=== PATIENT | female | born 1955 | race Caucasian/White ===

== ENCOUNTER 2016-10-12 13:33 | Emergency (ER) | payer BC ==
[2016-10-12 13:59] VITALS: BP 103/69; TEMP 96.1; O2SAT 99
--- NOTE | 2016-10-12 14:34 | ED.PDOC ---
History of Present Illness - General Chief Complaint: Upper Extremity Injury Stated Complaint: LEFT THUMB PAIN Time Seen by Provider: 10/12/16 13:57 Source: patient Exam Limitations: no limitations - History of Present Illness Initial Comments: the patient is a 61-year-old female presenting to the emergency room due to left thumb pain at the proximal interphalangeal joint after injuring it 2 weeks ago while snow skiing. Range of motion is slightly decreased at the joint and there is obvious swelling. No bruising at this time. Range of motion otherwise of the thumb and hand is within normal limits. Sensation is within normal limits. Capillary refill is within normal limits. No other injuries. Active range of motion and strength are preserved. She is tender to palpation of the joint. No gross deformity however. Pain - Upper Extremity: mild: Hand, left Method of Injury: fell, sports injury Improving Factors: immobilization Worsening Factors: movement Allergies/Adverse Reactions: Allergies NO KNOWN ALLERGY Allergy (Verified 07/22/15 08:24) Home Medications: Ambulatory Orders Levothyroxine Sodium [Synthroid] 0.025 mg PO 0700 07/22/15 Estradiol 0.5 mg PO DAILY 10/12/16 Trazodone HCl BEDTIME 10/12/16 Review of Systems - Review of Systems Constitutional: States: no symptoms reported EENTM: States: no symptoms reported Respiratory: States: no symptoms reported Cardiology: States: no symptoms reported Gastrointestinal/Abdominal: States: no symptoms reported Genitourinary: States: no symptoms reported Musculoskeletal: States: see HPI Skin: States: no symptoms reported Neurological: States: no symptoms reported All other Systems: No Change from Baseline Past Medical History (General) - Patient Medical History Hx Congestive Heart Failure: No Hx Thyroid Disease: Yes Hx Diabetes: No Surgical History: Hysterectomy - Vaccination History Hx Tetanus, Diphtheria Vaccination: No Hx Influenza Vaccination: No Hx Pneumococcal Vaccination: No - Social History Hx Tobacco Use: No - Female History Patient : No Family Medical History - Family History Mother Family History: Unknown Physical Exam - Physical Exam General Appearance: Alert, Comfortable, No apparent distress Eyes, Ears, Nose, Throat Exam: PERRL/EOMI Cardiovascular/Respiratory: normal peripheral pulses, no respiratory distress Shoulder Exam: non-tender, no evidence of injury, normal ROM Elbow/Forearm Exam: non-tender, no evidence of injury, normal ROM Wrist Exam: normal inspection, non-tender, no evidence of injury, normal ROM Hand Exam: swelling - see history of present illness. Right hand is within normal limits. Neuro/Tendon: normal sensation, normal motor functions, normal tendon functions Mental Status: alert, oriented x 3 Skin Exam: normal color Comments: Vital Signs - 24 hr 10/12/16 13:56 Temperature 96.1 F L Pulse Rate [ 51 L Right Brachial] Respiratory 16 Rate Blood Pressure 103/69 [Right Arm] O2 Sat by Pulse 99 Oximetry Progress - Progress Progress: 10/12/16 14:34 the patient is a 61-year-old female presenting with pain in her proximal left thumb, from an injury 2 weeks ago. X-ray shows no evidence of fracture or sustained dislocation. This is likely simply a thumb sprain. There is little point in immobilizing the thumb at this time. Mqsl-vfq-[id number] anti-inflammatories can be used to help reduce discomfort. She should anticipate another 2-3 weeks of mild discomfort. EOMs are given for any change in condition for the worse. Departure - Departure Clinical Impression: Thumb sprain Qualifiers: Encounter type: initial encounter Laterality: left Qualifier Code: (S63.602A) Unspecified sprain of left thumb, initial encounter Disposition: Discharge to Home or Self Care Condition: Fair Departure Forms: ED Discharge - Pt. Copy, Patient Portal Self Enrollment Instructions: Finger Sprain Diet: regular diet Activity: increase activity as tolerated Referrals: Won Jauregui MD [Primary Care Provider] - 1-2 Weeks Home Medications: Ambulatory Orders Levothyroxine Sodium [Synthroid] 0.025 mg PO 0700 07/22/15 Estradiol 0.5 mg PO DAILY 10/12/16 Trazodone HCl BEDTIME 10/12/16 Additional Instructions: the patient is a 61-year-old female presenting with pain in her proximal left thumb, from an injury 2 weeks ago. X-ray shows no evidence of fracture or sustained dislocation. This is likely simply a thumb sprain. There is little point in immobilizing the thumb at this time. Mloy-psx-vtfzbfy anti-inflammatories can be used to help reduce discomfort. She should anticipate another 2-3 weeks of mild discomfort. EOMs are given for any change in condition for the worse.
--- NOTE | 2016-10-12 14:38 | RAD ---
Three view left thumb. Indication: snow ski injury 2 weeks ago. Comparison: None. Impression: No acute fracture or malalignment. If there is persistent anatomic snuffbox tenderness, repeat wrist imaging to include a scaphoid view is recommended in one week to evaluate for occult scaphoid fracture. Soft tissues are intact without radiopaque foreign body. Electronically signed by: Royce Arguello MD 10/12/2016 2:37 PM CDT
== END 2016-10-12 14:44 | disposition home or self-care (01) ==
LOC: ER 13:33
DX: S63.602A Unspecified sprain of left thumb, initial encounter (principal); Z79.899 Other long term (current) drug therapy; X58.XXXA Exposure to other specified factors, initial encounter; Y93.23 Activity, snow (alpine) (downhill) skiing, snowboarding, sledding, tobogganing and snow tubing; Y92.9 Unspecified place or not applicable

== ENCOUNTER → 2017-05-13 | Outpatient (CLI) | payer BC ==
--- NOTE | 2017-05-16 08:51 | CT ---
EXAM DESCRIPTION: Chest w/o Contrast CLINICAL HISTORY: 62 years,Female,R91.8 COMPARISON: None TECHNIQUE: Multiple axial helical tomographic images were obtained of the chest with out IV contrast, then reconstructed in the sagittal and coronal plane. This exam was performed using radiation doses that are As Low As Reasonably Achievable (ALARA). FINDINGS: Lung sheth are clear. No consolidations or effusions or nodules. No pneumothoraces. Mild nonspecific pleural thickening at the apices Mediastinum demonstrates no adenopathy or masses. Heart size and pulmonary vascularity are unremarkable. Upper abdominal organs included in the exam are unremarkable. Soft tissues and bony elements are unremarkable. Borderline bronchiectasis with the bronchi being slightly larger than the adjacent vessels. But no wall thickening. IMPRESSION: No acute findings. There is some borderline bronchiectasis Electronically signed by: Bob Cooley MD 05/16/2017 8:49 AM CDT
== END | disposition home or self-care (01) ==
LOC: CT 11:01
PROVIDERS: ATTEND Family Medicine
DX: R91.8 Other nonspecific abnormal finding of lung field (principal)

== ENCOUNTER → 2017-09-28 | Outpatient (CLI) | payer BC | LOC: GMAHI 16:49 | PROVIDERS: ATTEND Nurse Practitioner Family | DX: D50.8 Other iron deficiency anemias (principal) ==

== ENCOUNTER → 2017-10-20 | Outpatient (CLI) | payer BC | END | disposition home or self-care (01) | LOC: MAMMO 13:30 | PROVIDERS: ATTEND Nurse Practitioner Family | DX: Z12.31 Encounter for screening mammogram for malignant neoplasm of breast (principal) ==

== ENCOUNTER → 2017-11-08 | Outpatient (CLI) | payer BC ==
--- NOTE | 2017-11-10 10:45 | US ---
EXAM DESCRIPTION: Breast,Left: Ultrasound CLINICAL HISTORY: 62 yearsFemaleABNORMAL MAMMO COMPARISON: Digital diagnostic 3-D tomosynthesis bilateral mammography on this visit. Screening 3-D tomosynthesis bilateral mammography 10/20/2017. TECHNIQUE: Transcutaneous scanning of the left breast utilizing two-dimensional and Doppler modes. Scanning performed by the medical office asst and Dr. Rhoades. FINDINGS: Scanning at the 6:00 sectors of the left breast from 5 cm to the nipple. Well-marginated hypoechoic mass measuring 5.5 x 3.0 mm with parallel orientation and indistinct posterior acoustic features. No central vascularity, but most likely a lymph node. Chest wall is well visualized. No distinct solid mass or cyst in the adjacent soft tissues. No parenchymal edema or large calcifications. No overlying skin changes. No abnormal soft tissue Doppler vascularity. IMPRESSION: 1. Bi-Rads Category 2: Benign. 2. Please refer to bilateral diagnostic 3-D tomosynthesis mammogram examination and report on this visit. The FINDINGS and the FOLLOW-UP plan were reviewed in person with the patient after the examination. Written communication explaining the IMPRESSION and FOLLOW-UP will be mailed to the patient and referring care provider. Electronically signed by: Ritchie Rhoades MD 11/10/2017 10:43 AM CDT
--- NOTE | 2017-11-10 10:46 | MAM ---
EXAM DESCRIPTION: 3D Diagnostic, Bilateral: Digital Mammography CLINICAL HISTORY: 62 yearsFemaleABN SCREEN . Focal asymmetry left breast.. COMPARISON: Screening 3-D tomosynthesis bilateral mammography 10/20/2017. Targeted left breast ultrasound following this examination. Reports from prior examinations also reviewed. TECHNIQUE: Bilateral LM projection full-field images, 3-D tomosynthesis digital mammographic technique. Also bilateral synthesized LM full-field images. CAD not utilized. FINDINGS: The breast parenchymal density pattern is: Heterogeneously dense breast tissue, which may obscure small masses. No skin thickening or nipple retraction focal asymmetry seen on the screening study is not as well demonstrated on the left LM 3-D tomosynthesis full field images. Ultrasound: Scanning at the 6:00 sectors of the left breast from 5 cm to the nipple. Well-marginated hypoechoic mass measuring 5.5 x 3.0 mm with parallel orientation and indistinct posterior acoustic features. No central vascularity, but most likely a lymph node. Chest wall is well visualized. No distinct solid mass or cyst in the adjacent soft tissues. No parenchymal edema or large calcifications. No overlying skin changes. No abnormal soft tissue Doppler vascularity. IMPRESSION: BI-RADS CATEGORY: 2 - BENIGN FINDINGS. FOLLOW UP: Routine digital bilateral screening, one year interval from October 2017. Written communication explaining the IMPRESSION and follow-up, will be mailed to the patient and referring health care provider. According to the [employer], yearly mammograms are recommended starting at age 40 and continuing as long as a woman is in good health. Any breast change noted on a breast self-exam should be reported promptly to the patient's healthcare provider. Breast MRI is recommended for women with an approximately 20-25% or greater lifetime risk of breast cancer, including women with a strong family history of breast or ovarian cancer and women who have been treated for Hodgkin's disease. A negative mammographic report should not delay tissue diagnosis in patients with significant clinical history or physical findings. Extremely dense breast tissue limits the sensitivity of digital mammography. Electronically signed by: Ritchie Rhoades MD 11/10/2017 10:44 AM CDT
== END ==
LOC: MAMMO 13:00
PROVIDERS: ATTEND Family Medicine
DX: R92.8 Other abnormal and inconclusive findings on diagnostic imaging of breast (principal)
CPT/HCPCS: 76641; 77066; G0279

== ENCOUNTER → 2018-10-31 | Outpatient (CLI) | payer BC ==
--- NOTE | 2018-11-01 16:47 | MAM ---
EXAM DESCRIPTION: 3D Screening BILATERAL : Digital Mammography. CLINICAL HISTORY: 63 years Female SCREENING . No complaints. No personal or family history of breast cancer. Childbirth. Postmenopausal 25 years. Hormone replacement 5 or more years ago.. Lifetime risk of developing breast cancer (Tyrer-Cuzick model)(%): 5.8. COMPARISON: Bilateral screening digital breast tomosynthesis 10/20/2017.. Diagnostic left breast tomosynthesis and targeted left breast ultrasound 11/08/2017. TECHNIQUE: Bilateral CC and MLO projection full-field images, digital tomosynthesis mammographic technique. Bilateral digital 2-D full-field MLO images. CAD not available for tomosynthesis or 2-D images. FINDINGS: The breast parenchymal density pattern is: Heterogeneously dense breast tissue, which may obscure small masses. No skin thickening or nipple retraction. No new focal, stellate mass or density, focal asymmetry , and no suspicious microcalcifications bilaterally. Stable mammograms compared to prior study. IMPRESSION: BI-RADS CATEGORY: 1 - NEGATIVE FOLLOW UP: Routine digital bilateral screening, one year interval from October 2018. Written communication explaining the findings and follow-up, will be mailed to the patient and referring health care provider. According to the [employer], yearly mammograms are recommended starting at age 40 and continuing as long as a woman is in good health. Any breast change noted on a breast self-exam should be reported promptly to the patient's healthcare provider. Breast MRI is recommended for women with an approximately 20-25% or greater lifetime risk of breast cancer, including women with a strong family history of breast or ovarian cancer and women who have been treated for Hodgkin's disease. A negative mammographic report should not delay tissue diagnosis in patients with significant clinical history or physical findings. Extremely dense breast tissue limits the sensitivity of digital mammography. Electronically signed by: Ritchie Rhoades MD 11/01/2018 4:44 PM CDT
== END ==
LOC: MAMMO 13:00
PROVIDERS: ATTEND Family Medicine
DX: Z12.31 Encounter for screening mammogram for malignant neoplasm of breast (principal)

== ENCOUNTER → 2018-11-21 | Outpatient (CLI) | payer BC | LOC: GMAHI 16:51 | PROVIDERS: ATTEND Nurse Practitioner Family | DX: D50.8 Other iron deficiency anemias (principal) ==

== ENCOUNTER → 2019-11-19 | Outpatient (CLI) | payer BC ==
--- NOTE | 2019-11-20 16:57 | MAM ---
EXAM DESCRIPTION: 3D Screening BILATERAL : Digital Mammography. CLINICAL HISTORY: 64 years Female SCREENING . No complaints. No personal or family history of breast cancer. Menarche age 13. Childbirth age 23. Menopause age 38. HRT less than 5 years ago.. Lifetime risk of developing breast cancer (Tyrer-Cuzick model)(%): 5.1. COMPARISON: Bilateral screening digital breast tomosynthesis October 2018 and October 2017. TECHNIQUE: Bilateral CC and MLO projection full-field images, digital tomosynthesis mammographic technique. Bilateral digital 2-D full-field MLO images. CAD available for 2-D images. FINDINGS: The breast parenchymal density pattern is: Extremely dense breast tissue, which lowers the sensitivity of mammography. No skin thickening or nipple retraction. Skin mole markers left breast. Solitary microcalcifications. No new focal, stellate mass or density, focal asymmetry , and no suspicious microcalcifications bilaterally. Stable mammograms compared to prior study. IMPRESSION: Benign exam. BIRAD CATEGORY: 2 BENIGN FINDINGS. RECOMMENDATIONS: FOLLOW UP: Routine digital bilateral mammographic screening, one year interval from November 2019. Written communication explaining the IMPRESSION and follow-up, will be mailed to the patient and referring health care provider. According to the [employer], yearly mammograms are recommended starting at age 40 and continuing as long as a woman is in good health. Any breast change noted on a breast self-exam should be reported promptly to the patient's healthcare provider. Breast MRI is recommended for women with an approximately 20-25% or greater lifetime risk of breast cancer, including women with a strong family history of breast or ovarian cancer and women who have been treated for Hodgkin's disease. A negative mammographic report should not delay tissue diagnosis in patients with significant clinical history or physical findings. Extremely dense breast tissue limits the sensitivity of digital mammography. Electronically signed by: Ritchie Rhoades MD 11/20/2019 4:56 PM CDT
== END ==
LOC: MAMMO 15:12
PROVIDERS: ATTEND Nurse Practitioner Family
DX: Z12.31 Encounter for screening mammogram for malignant neoplasm of breast (principal)